=== PATIENT | male | born 1975 | race American Indian/Alaskan Native ===

== ENCOUNTER 2019-03-07 17:02 | Emergency (ER) | payer OTHER ==
[2019-03-07] MEDS ORDERED: NACL 0.9% 1000 ML 1,000 ML IV ONE (17:15)
[2019-03-07] MEDS ORDERED: ZOFRAN IV ONE (17:15)
--- NOTE | 2019-03-07 17:17 | Emergency Department Report ---
Blank Doc - Documentation Documentation: 43 Y/O MALE PRESENTS TO ED WITH SUDDEN ONSET OF ABDOMINAL PAIN NAUSEA, VOMITING, DIARRHEA. DIFFUSE MYALGIA AND LETHARGY
[2019-03-07 17:40] LABS: Basophils % (Auto) 0.3 % (0.0-1.8); Eosinophils % (Auto) 0.6 % (0.0-4.3); Hematocrit 49.4 % (35.5-45.6); Hemoglobin 16.5 gm/dl (11.8-15.2); Lymphocytes # (Auto) 0.6 K/mm3 (1.2-5.4); Lymphocytes % (Auto) 9.6 % (13.4-35.0); Mean Corpuscular HGB Conc 33 % (32-34); Mean Corpuscular Volume 84 fl (84-94); Monocytes # (Auto) 0.3 K/mm3 (0.0-0.8); Monocytes % (Auto) 5.2 % (0.0-7.3); Platelet Count 200 K/mm3 (140-440); Red Blood Count 5.87 M/mm3 (3.65-5.03); Red Cell Distribution Width 13.3 % (13.2-15.2)
[2019-03-07 18:06] LABS: Alanine Aminotransferase 21 units/L (7-56); Albumin 4.3 g/dL (3.9-5); BUN/Creatinine Ratio 8; Bilirubin,Direct 0.2 mg/dL (0-0.2); Blood Urea Nitrogen 9 mg/dL (9-20); Calcium 9.8 mg/dL (8.4-10.2); Hemolysis Index 6
[2019-03-07 19:24] LABS: Bilirubin,Urine NEG (Negative); Blood,Urine NEG (Negative); Color,Urine Yellow (Yellow); Mucus,Urine FEW /HPF; Protein,Urine <15 mg/dL mg/dL (Negative); Urobilinogen,Urine < 2.0 mg/dL (<2.0); WBC,Urine < 1.0 /HPF (0.0-6.0)
[2019-03-07] MEDS ORDERED: ZOFRAN ONE (19:42)
--- NOTE | 2019-03-07 21:21 | Emergency Department Report ---
ED N/V/D HPI - General Chief complaint: Pain General Stated complaint: ACHE PAIN ALL OVER Time Seen by Provider: 03/07/19 17:14 Source: patient Mode of arrival: Wheelchair Limitations: No Limitations - History of Present Illness Initial comments: Patient is a 43-year-old -[place] male with no past medical history who presents to the ED with complaint of acute onset of persistent intermittent nausea, diarrhea and diffuse body aches for the last 12 hours. Patient admits to eating some vegetables the day before. Patient denies fever, chills, abdominal pain, vomiting, chest pain, shortness of breath, cough, nasal and sinus congestion, change in vision, dysuria, urinary frequency and urgency over testicular pain and sore throat. MD complaint: nausea, diarrhea, other (DIFFUSE BODY ACHES) -: Sudden, hour(s) (12), This morning Description of Diarrhea: water Associated Abdominal Pain: No (Diffuse body aches) Location: diffuse Radiation: none Severity: moderate, severe Pain Scale: 6 Quality: aching Consistency: constant Improves with: none Worsens with: none Context: possible food poisoning Associated Symptoms: denies other symptoms, myalgias, diaphoresis, fever/chills, loss of appetite, malaise, nausea/vomiting. denies: chest pain, cough, headaches, shortness of breath, syncope, weakness - Related Data Previous Rx's Medication Instructions Recorded Last Taken Type Diphenoxylate/Atropine [Lomotil] 1 - 2 tab PO Q4H PRN #15 tablet 03/07/19 Unknown Rx Ibuprofen [Motrin] 800 mg PO Q8HR PRN #20 tablet 03/07/19 Unknown Rx Ondansetron [Zofran Odt] 4 mg PO Q6HR PRN #15 tab.rapdis 03/07/19 Unknown Rx Ranitidine HCl [Zantac] 150 mg PO Q12H #20 tablet 03/07/19 Unknown Rx Allergies Allergy/AdvReac Type Severity Reaction Status Date / Time No Known Allergies Allergy Unverified 03/07/19 17:14 ED Review of Systems ROS: Stated complaint: ACHE PAIN ALL OVER Other details as noted in HPI Comment: All other systems reviewed and negative Constitutional: no symptoms reported, see HPI, chills, malaise, weakness. denies: diaphoresis, fever Eyes: as per HPI. denies: eye pain, eye discharge, vision change ENT: as per HPI. denies: throat pain, dental pain, hearing loss Respiratory: no symptoms reported, see HPI. denies: cough, orthopnea, shortness of breath, SOB with exertion Cardiovascular: as per HPI. denies: chest pain, palpitations, orthopnea, edema, syncope, paroxysmal nocturnal dyspnea Endocrine: no symptoms reported, see HPI. denies: intolerance to cold, intolera nce to heat, increased thirst, increased urine Gastrointestinal: as per HPI, nausea, diarrhea. denies: abdominal pain, hematemesis, hematochezia Genitourinary: as per HPI. denies: urgency, dysuria, hematuria, discharge Musculoskeletal: as per HPI, arthralgia, myalgia Skin: as per HPI. denies: rash, lesions, change in color, pruritus Neurological: as per HPI. denies: headache, paresthesias, confusion, abnormal gait, vertigo Psychiatric: as per HPI. denies: anxiety, depression, auditory hallucinations, visual hallucinations Hematological/Lymphatic: as per HPI. denies: easy bleeding ED Past Medical Hx - Past Medical History Previous Medical History?: No - Surgical History Past Surgical History?: No - Social History Smoking Status: Current Some Day Smoker Substance Use Type: Alcohol - Medications Home Medications: Home Medications Medication Instructions Recorded Confirmed Last Taken Type Diphenoxylate/Atropine [Lomotil] 1 - 2 tab PO Q4H PRN #15 tablet 03/07/19 Unknown Rx Ibuprofen [Motrin] 800 mg PO Q8HR PRN #20 tablet 03/07/19 Unknown Rx Ondansetron [Zofran Odt] 4 mg PO Q6HR PRN #15 tab.rapdis 03/07/19 Unknown Rx Ranitidine HCl [Zantac] 150 mg PO Q12H #20 tablet 03/07/19 Unknown Rx ED Physical Exam - General Limitations: No Limitations General appearance: alert, in no apparent distress - Head Head exam: Present: atraumatic, normocephalic - Eye Eye exam: Present: normal appearance, PERRL, EOMI - ENT ENT exam: Present: normal exam, normal orophraynx, mucous membranes moist, TM's normal bilaterally, normal external ear exam - Neck Neck exam: Present: normal inspection, full ROM. Absent: tenderness, lymphadenopathy - Respiratory Respiratory exam: Present: normal lung sounds bilaterally. Absent: respiratory distress, wheezes, rhonchi, chest wall tenderness - Cardiovascular Cardiovascular Exam: Present: normal rhythm, tachycardia, normal heart sounds - GI/Abdominal GI/Abdominal exam: Present: soft, normal bowel sounds. Absent: distended, tenderness, guarding, hyperactive bowel sounds, hypoactive bowel sounds - Rectal Rectal exam: Present: deferred - Extremities Exam Extremities exam: Present: normal inspection, full ROM, normal capillary refill - Back Exam Back exam: Present: normal inspection, full ROM. Absent: tenderness, CVA tenderness (R), CVA tenderness (L), paraspinal tenderness, vertebral tenderness - Neurological Exam Neurological exam: Present: alert, oriented X3, CN II-XII intact, normal gait, reflexes normal - Psychiatric Psychiatric exam: Present: normal affect - Skin Skin exam: Present: warm, dry, intact, normal color ED Course Vital Signs 03/07/19 17:13 Temperature 99 F Pulse Rate 103 H Respiratory 18 Rate Blood Pressure 114/74 O2 Sat by Pulse 99 Oximetry - Reevaluation(s) Reevaluation #1: 03/07/19 21:21 The patient is alert and oriented 3 and is not in distress. Labs were drawn and the patient is with the Zofran oral nausea. Patient also received normal saline 1 L IV bolus 1. Lab test results were reviewed and are unremarkable. On reevaluation, patient feeling much better with no nausea. Patient has not had any diarrhea since presenting to the ED. Patient discharged home on medications and advised to follow-up with his primary care physician in 2-3 days for reevaluation. Patient is advised to return to the ED immediately if symptoms get worse. ED Medical Decision Making - Lab Data Result diagrams: 03/07/19 17:17 03/07/19 17:17 - Medical Decision Making Patient had presented to the ED with persistent nausea, diffuse body aches and diarrhea after eating some food at home. Patient was treated in the ED and Lab test results reviewed and are unremarkable. The patient's symptoms are likely viral from food poisoning. The patient is sent home on medications and advised to follow up. His primary care physician in 2-3 days for reevaluation, or return to the ED immediately if symptoms get worse. - Differential Diagnosis Viral gastroenteritis, Flu like symptoms, Nausea, diarrhea Critical care attestation.: If time is entered above; I have spent that time in minutes in the direct care of this critically ill patient, excluding procedure time. ED Disposition Clinical Impression: Viral gastroenteritis, Nausea, vomiting and diarrhea, Flu-like symptoms Disposition: TO HOME OR SELFCARE Is pt being admited?: No Does the pt Need Aspirin: No Condition: Stable Instructions: Acute Nausea and Vomiting (ED), Traveler's Diarrhea (ED), Acute Diarrhea (ED) Additional Instructions: Maintain a clear liquid diet for the next 12-24 hours and follow up with your Primary Care Physician as advised. Return to the ED immediately if symptoms get worse. Prescriptions: Diphenoxylate/Atropine [Lomotil] 1 - 2 tab PO Q4H PRN #15 tablet PRN Reason: Diarrhea Ibuprofen [Motrin] 800 mg PO Q8HR PRN #20 tablet PRN Reason: Pain , Severe (7-10) Ranitidine HCl [Zantac] 150 mg PO Q12H #20 tablet Ondansetron [Zofran Odt] 4 mg PO Q6HR PRN #15 tab.rapdis PRN Reason: Nausea Referrals: GUANAKITO YATES MD [Primary Care Provider] - 3-5 Days Time of Disposition: 21:26 Print Language: SWEDISH
[2019-03-07 22:15] VITALS: BP 126/75
== END 2019-03-07 22:14 | disposition home or self-care (01) ==
LOC: ED 17:02
DX: A08.4 Viral intestinal infection, unspecified (principal); F17.200 Nicotine dependence, unspecified, uncomplicated
CPT/HCPCS: 36415; 80048; 80076; 81001; 83690; 85025; 96361; 96374; 99283; J2405; J7030

== ENCOUNTER 2020-09-29 10:03 | Emergency (ER) | payer SELFPAY ==
[2020-09-29 10:22] VITALS: BP 123/81
--- NOTE | 2020-09-29 10:53 | Event Note ---
ED Screening Note Date of service: 09/29/20 Time: 10:49 ED Screening Note: 44-year-old -[place] male presents to the emergency room for 2-day history of back pain. Patient denies any injury. States he took a BC powder yesterday evening. States that it did help but the pain is come back. Patient denies any blood in the urine no pain with urination no penile discharge works in yard work. Patient feels it is his kidneys because it is in his lower back on both sides. This initial assessment/diagnostic orders/clinical plan/treatment(s) is/are subject to change based on patients health status, clinical progression and re- assessment by fellow clinical providers in the ED. Further treatment and workup at subsequent clinical providers discretion. Patient/guardian urged not to elope from the ED as their condition may be serious if not clinically assessed and managed. Initial orders include: ua
[2020-09-29 12:18] LABS: Bacteria,Urine 1+ /HPF (Negative); Bilirubin,Urine NEG (Negative); Blood,Urine MOD (Negative); Color,Urine Yellow (Yellow); Mucus,Urine FEW /HPF; Protein,Urine <15 mg/dL mg/dL (Negative); Urobilinogen,Urine < 2.0 mg/dL (<2.0)
[2020-09-29] MEDS ORDERED: dexAMETHasone 20 MG/5 ML VIAL IM ONE (12:51)
[2020-09-29] MEDS ORDERED: KETOROLAC 60 MG/2 ML INJ IM ONE (12:51)
--- NOTE | 2020-09-29 13:06 | Emergency Department Report ---
ED Back Pain/Injury HPI - General Chief Complaint: Back Pain/Injury Stated Complaint: BACK/KIDNEY PAIN Time Seen by Provider: 09/29/20 10:48 Source: patient Limitations: No Limitations - History of Present Illness Initial Comments: Patient is a 44-year-old male presents emergency room with complaints of bilateral lower back pain that began 2 days ago. 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 He denies any fall or injury. He denies any nausea, vomiting, diarrhea, fever, numbness, weakness, bowel or bladder incontinence, dysuria, dark urine, hematuria, chest pain, shortness of breath, abdominal pain. He denies any past medical history. No allergies to medications. - Related Data Previous Rx's Medication Instructions Recorded Last Taken Type Diphenoxylate/Atropine [Lomotil] 1 - 2 tab PO Q4H PRN #15 tablet 03/07/19 Unknown Rx Ibuprofen [Motrin] 800 mg PO Q8HR PRN #20 tablet 03/07/19 Unknown Rx Ondansetron [Zofran Odt] 4 mg PO Q6HR PRN #15 tab.rapdis 03/07/19 Unknown Rx raNITIdine HCl [Zantac] 150 mg PO Q12H #20 tablet 03/07/19 Unknown Rx Naproxen [EC-Naproxen] 500 mg PO BID PRN #14 tablet.dr 09/29/20 Unknown Rx methOCARBAMOL [Robaxin TAB] 500 mg PO BID PRN #14 tab 09/29/20 Unknown Rx Allergies Allergy/AdvReac Type Severity Reaction Status Date / Time No Known Allergies Allergy Verified 09/29/20 10:18 ED Review of Systems ROS: Stated complaint: BACK/KIDNEY PAIN Other details as noted in HPI Comment: All other systems reviewed and negative ED Past Medical Hx - Past Medical History Previous Medical History?: No - Social History Smoking Status: Current Some Day Smoker Substance Use Type: Alcohol - Medications Home Medications: Home Medications Medication Instructions Recorded Confirmed Last Taken Type Diphenoxylate/Atropine [Lomotil] 1 - 2 tab PO Q4H PRN #15 tablet 03/07/19 Unknown Rx Ibuprofen [Motrin] 800 mg PO Q8HR PRN #20 tablet 03/07/19 Unknown Rx Ondansetron [Zofran Odt] 4 mg PO Q6HR PRN #15 tab.rapdis 03/07/19 Unknown Rx raNITIdine HCl [Zantac] 150 mg PO Q12H #20 tablet 03/07/19 Unknown Rx Naproxen [EC-Naproxen] 500 mg PO BID PRN #14 tablet.dr 09/29/20 Unknown Rx methOCARBAMOL [Robaxin TAB] 500 mg PO BID PRN #14 tab 09/29/20 Unknown Rx ED Physical Exam - General Limitations: No Limitations General appearance: alert, in no apparent distress - Head Head exam: Present: atraumatic, normocephalic - Eye Eye exam: Present: normal appearance - ENT ENT exam: Present: mucous membranes moist - Neck Neck exam: Present: normal inspection, full ROM. Absent: tenderness - Respiratory Respiratory exam: Present: normal lung sounds bilaterally. Absent: respiratory distress, wheezes, rales, rhonchi, stridor, chest wall tenderness, accessory muscle use, decreased breath sounds, prolonged expiratory - Cardiovascular Cardiovascular Exam: Present: regular rate, normal rhythm, normal heart sounds. Absent: systolic murmur, diastolic murmur, rubs, gallop - Back Exam Back exam: Present: normal inspection, full ROM, paraspinal tenderness (bilateral lumbar paraspainl muscular ttp, no midline C-spine, T-spine, L-spine ttp, no step offs, no deformities). Absent: CVA tenderness (R), CVA tenderness (L), vertebral tenderness - Neurological Exam Neurological exam: Present: alert, oriented X3, CN II-XII intact, normal gait. Absent: motor sensory deficit - Psychiatric Psychiatric exam: Present: normal affect, normal mood - Skin Skin exam: Present: warm, dry, intact ED Course Vital Signs 09/29/20 09/29/20 10:21 13:01 Temperature 98.1 F Pulse Rate 61 Respiratory 20 18 Rate Blood Pressure 123/81 O2 Sat by Pulse 98 Oximetry ED Medical Decision Making - Lab Data Lab Results 09/29/20 Range/Units 11:27 Urine Color Yellow (Yellow) Urine Turbidity Clear (Clear) Urine pH 5.0 (5.0-7.0) Ur Specific [place] 1.019 (1.003-1.030) Urine Protein <15 mg/dl (Negative) mg/dL Urine Glucose (UA) Neg (Negative) mg/dL Urine Ketones Neg (Negative) mg/dL Urine Blood Mod (Negative) Urine Nitrite Neg (Negative) Urine Bilirubin Neg (Negative) Urine Urobilinogen < 2.0 (<2.0) mg/dL Ur Leukocyte Esterase Tr (Negative) Urine WBC (Auto) 3.0 (0.0-6.0) /HPF Urine RBC (Auto) 7.0 (0.0-6.0) /HPF U Epithel Cells (Auto) 1.0 (0-13.0) /HPF Urine Bacteria (Auto) 1+ (Negative) /HPF Urine Mucus Few /HPF - Medical Decision Making Patient is a 44-year-old male presents emergency room with complaints of bilateral lower back pain that began 2 days ago. 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 He denies any fall or injury. He denies any nausea, vomiting, diarrhea, fever, numbness, weakness, bowel or bladder incontinence, dysuria, dark urine, hematuria, chest pain, shortness of breath, abdominal pain. He denies any past medical history. No allergies to medications. vitals are normal. on exam: bilateral lumbar paraspainl muscular ttp, no midline C-spine, T-spine, L-spine ttp, no step offs, no deformities, no focal neuro deficits. UA is within normal limits. Examination appears most consistent with lumbar strain. Patient has no red flag warning signs of back pain, no trauma, no unexplained weight loss, no focal neuro deficits, age is not greater than 50, no fever, no IV drug use, no steroid use, no history of cancer. Patient given Toradol and dexamethasone IM while in the emergency department and symptoms completely improved and patient was feeling much better and ready to go home and was ambulating without difficulty. Patient given prescription for naproxen and Robaxin. Advised patient Please take medication as prescribed. Do not drive or operate heavy machinery while taking Robaxin muscle relaxer. May use ice pack, heating pad, rest, Epsom salt bath. Follow-up with a primary care doctor. Return to emergency room for any new or worsening symptoms. - Differential Diagnosis Muscle strain, radiculopathy, sciatica, DDD, bulging disc, spondylosis, art Critical care attestation.: If time is entered above; I have spent that time in minutes in the direct care of this critically ill patient, excluding procedure time. ED Disposition Clinical Impression: Low back pain Qualifiers: Chronicity: acute Back pain laterality: bilateral Sciatica presence: without sciatica Qualified Code(s): M54.5 - Low back pain Disposition: TO HOME OR SELFCARE Is pt being admited?: No Does the pt Need Aspirin: No Condition: Stable Instructions: Muscle Strain Additional Instructions: Please take medication as prescribed. Do not drive or operate heavy machinery while taking Robaxin muscle relaxer. May use ice pack, heating pad, rest, Epsom salt bath. Follow-up with a primary care doctor. Return to emergency room for any new or worsening symptoms. Prescriptions: Naproxen [EC-Naproxen] 500 mg PO BID PRN #14 tablet.dr PRN Reason: pain methOCARBAMOL [Robaxin TAB] 500 mg PO BID PRN #14 tab PRN Reason: pain Referrals: PRIMARY MD MIRNA [Primary Care Provider] - 2-3 Days GUANAKITO YATES MD [Staff Physician] - 2-3 Days [facility] [Provider Group] - 2-3 Days [facility], [LAB/CONTRACT] - 2-3 Days Forms: Work/School Release Form(ED) Time of Disposition: 13:05 Print Language: WOLOF
== END 2020-09-29 13:23 | disposition home or self-care (01) ==
LOC: ED 10:03
DX: M54.5 Low back pain (principal); F17.200 Nicotine dependence, unspecified, uncomplicated; Z79.899 Other long term (current) drug therapy
CPT/HCPCS: 81001; 96372; 99283; J1100; J1885

== ENCOUNTER 2021-03-30 10:10 | Emergency (ER) | payer BC ==
[2021-03-30 11:05] VITALS: BP 136/76
--- NOTE | 2021-03-30 11:19 | Emergency Department Report ---
ED Extremity Problem HPI - General Chief complaint: Extremity Injury, Lower Stated complaint: LT FOOT PAINS Time Seen by Provider: 03/30/21 10:40 Source: patient Mode of arrival: Ambulatory Limitations: No Limitations - History of Present Illness Initial comments: 45-year-old male presents to the ER today with complaints of pain to his left hip/thigh and left knee area. Patient states that the pain started about a week and a half ago but seems to be getting worse. He states that the pain radiates out into his left calf. He denies any particular injury but states that he does do a lot of walking, lifting and bending at work. He states that he does have some mild lower back pain at times but nothing significant. He denies any associated swelling, or bruising, numbness or tingling. He reports no bowel or bladder incontinence or any saddle anesthesia or lower extremity weakness. He denies any chest pain or shortness of breath. He denies similar symptoms in the past. He states that he has been taking Motrin 800 with mild relief of his symptoms. MD Complaint: extremity pain, other (Left hip/thigh/knee pain ) -: Gradual (1.5 weeks ago ) Location: left Severity scale (0 -10): 10 - Related Data Previous Rx's Medication Instructions Recorded Last Taken Type Ketorolac [Toradol] 10 mg PO Q6H PRN #20 tablet 03/30/21 Unknown Rx tiZANidine [Zanaflex 4mg TAB] 4 mg PO BID PRN #15 tablet 03/30/21 Unknown Rx Allergies Allergy/AdvReac Type Severity Reaction Status Date / Time No Known Allergies Allergy Verified 09/29/20 10:18 ED Review of Systems ROS: Stated complaint: LT FOOT PAINS Other details as noted in HPI Comment: All other systems reviewed and negative Constitutional: denies: chills, fever Eyes: denies: eye pain, eye discharge, vision change ENT: denies: ear pain, throat pain, dental pain, hearing loss, epistaxis, congestion Respiratory: denies: cough, shortness of breath, wheezing Cardiovascular: denies: chest pain, palpitations, dyspnea on exertion, edema, syncope, paroxysmal nocturnal dyspnea Gastrointestinal: denies: abdominal pain, nausea, diarrhea, constipation, hematemesis Genitourinary: denies: urgency, dysuria, frequency, hematuria, discharge, testicular pain, testicular mass Musculoskeletal: back pain, arthralgia, myalgia Skin: denies: rash, lesions, change in color, change in hair/nails, pruritus Neurological: denies: headache, weakness, numbness, paresthesias, confusion, abnormal gait Psychiatric: denies: anxiety, depression, auditory hallucinations, visual hallucinations, homicidal thoughts, suicidal thoughts Hematological/Lymphatic: denies: easy bleeding, easy bruising ED Past Medical Hx - Past Medical History Previous Medical History?: No - Social History Smoking Status: Current Some Day Smoker - Medications Home Medications: Home Medications Medication Instructions Recorded Confirmed Last Taken Type Ketorolac [Toradol] 10 mg PO Q6H PRN #20 tablet 03/30/21 Unknown Rx tiZANidine [Zanaflex 4mg TAB] 4 mg PO BID PRN #15 tablet 03/30/21 Unknown Rx ED Physical Exam - General Limitations: No Limitations General appearance: alert, in no apparent distress - Head Head exam: Present: atraumatic, normocephalic, normal inspection - Eye Eye exam: Present: normal appearance, PERRL, EOMI Pupils: Present: normal accommodation - ENT ENT exam: Present: normal exam, mucous membranes moist - Neck Neck exam: Present: normal inspection, full ROM - Respiratory Respiratory exam: Present: normal lung sounds bilaterally. Absent: respiratory distress, wheezes, rales, rhonchi - Cardiovascular Cardiovascular Exam: Present: regular rate, normal rhythm, normal heart sounds - GI/Abdominal GI/Abdominal exam: Present: soft. Absent: distended, tenderness, guarding, rebound - Expanded Lower Extremity Exam Left Hip exam: Present: normal inspection, full ROM, tenderness (mild ttp posterior lateral and medial left hip). Absent: swelling, abrasion, laceration, ecchymosis, deformity, crepidus, dislocation, erythema, external rotation, internal rotation, shortening, pelvic stability Upper Leg exam: Present: normal inspection, full ROM, tenderness (lateral, anterior and medial - mild ). Absent: swelling, abrasion, laceration, ecchymosis, deformity, crepidus, dislocation, erythema Knee exam: Present: normal inspection, full ROM, tenderness (anterior medial and lat left knee - mild ). Absent: swelling, abrasion, laceration, ecchymosis, deformity, crepidus, dislocation, erythema, effusion Lower Leg exam: Present: normal inspection, full ROM. Absent: tenderness, swelling, abrasion, laceration, ecchymosis, deformity, crepidus, dislocation, erythema, palpable cord, Annamarie's sign Foot/Toe exam: Present: normal inspection Neuro vascular tendon exam: Present: no vascular compromise. Absent: pulse deficit, motor deficit, sensory deficit Gait: Positive: observed and normal - Back Exam Back exam: Present: normal inspection, full ROM, paraspinal tenderness (mild lower lumbar area) - Neurological Exam Neurological exam: Present: alert, oriented X3, CN II-XII intact, normal gait. Absent: motor sensory deficit - Psychiatric Psychiatric exam: Present: normal affect - Skin Skin exam: Present: intact ED Course Vital Signs 03/30/21 11:04 Temperature 98.0 F Pulse Rate 74 Respiratory 18 Rate Blood Pressure 136/76 [Left] O2 Sat by Pulse 98 Oximetry ED Medical Decision Making - Radiology Data Radiology results: report reviewed Patient: CLINT HOWARD MR #: [id number] : 1975 Acct:[id number] Age/Sex: 45 / M ADM Date: 03/30/21 Loc: ED Attending Dr: Ordering Physician: ISAAC ACUÑA Date of Service: 03/30/21 Procedure(s): VL venous duplex LE LT Accession Number(s): [id number] cc: ISAAC ACUÑA DUPLEX DOPPLER LOWER EXTREMITY VEINS, LEFT INDICATION / CLINICAL INFORMATION: Left thigh pain. TECHNIQUE: Duplex doppler imaging was performed through the veins of the left lower extremity using venous compression and other maneuvers. COMPARISON: None available. FINDINGS: LEFT COMMON FEMORAL VEIN: Negative. LEFT FEMORAL VEIN: Negative. LEFT POPLITEAL VEIN: Negative. LEFT CALF VEINS: Negative. ADDITIONAL FINDINGS: None. IMPRESSION: 1. No sonographic evidence for DVT in the left lower extremity. Signer Name: Butch Mondragon MD Signed: 03/30/2021 11:51 AM Workstation Name: [id number] Transcribed By: Dictated By: BUTCH MONDRAGON Electronically Authenticated By: BUTCH MONDRAGON Signed Date/Time: 03/30/21 1151 DD/ 1150 TD/TT: - Medical Decision Making 45-year-old male presents to the ER today with complaints of pain to his left hip/thigh and left knee area. Patient states that the pain started about a week and a half ago but seems to be getting worse. He states that the pain radiates out into his left calf. He denies any particular injury but states that he does do a lot of walking, lifting and bending at work. He states that he does have some mild lower back pain at times but nothing significant. He denies any associated swelling, or bruising, numbness or tingling. He reports no bowel or bladder incontinence or any saddle anesthesia or lower extremity weakness. He denies any chest pain or shortness of breath. He denies similar symptoms in the past. He states that he has been taking Motrin 800 with mild relief of his symptoms. 1212: Venous doppler negative DVT His history/PE does not suggest cellulitis, acute arterial occlusion, compartment syndrome, septic joint or fracture at this time. Patient is not toxic, is not ill-appearing, is not in any acute pain distress. He is neurologically intact with a normal gait. His vital signs are stable. Suspect muscle strain/sprain possibly from repetitive movements at work. Discussed suspected diagnosis and treatment plan with patient. Recommend follow-up with antenna specialist in 1 week if symptoms persist. Patient stable at time of discharge. Critical care attestation.: If time is entered above; I have spent that time in minutes in the direct care of this critically ill patient, excluding procedure time. ED Disposition Clinical Impression: Left thigh pain, Left hip pain, Left knee pain, Muscle strain Disposition: DC-01 TO HOME OR SELFCARE Is pt being admited?: No Does the pt Need Aspirin: No Condition: Stable Instructions: Musculoskeletal Pain, Muscle Strain Additional Instructions: Take the toradol and the Zanaflex as prescribed. Elevate your leg as often as possible for the next few days. Follow up with [facility] if pain persist. Return to ED if symptoms worsens or changes in anyway. Prescriptions: Ketorolac [Toradol] 10 mg PO Q6H PRN #20 tablet PRN Reason: Pain tiZANidine [Zanaflex 4mg TAB] 4 mg PO BID PRN #15 tablet PRN Reason: muscle pain Referrals: VELMA MCCABE MD [Staff Physician] - 3-5 Days Forms: Work/School Release Form(ED) Time of Disposition: 12:06
--- NOTE | 2021-03-30 11:55 | Vascular Lab Report ---
DUPLEX DOPPLER LOWER EXTREMITY VEINS, LEFT INDICATION / CLINICAL INFORMATION: Left thigh pain. TECHNIQUE: Duplex doppler imaging was performed through the veins of the left lower extremity using venous compr ession and other maneuvers. COMPARISON: None available. FINDINGS: LEFT COMMON FEMORAL VEIN: Negative. LEFT FEMORAL VEIN: Negative. LEFT POPLITEAL VEIN: Negative. LEFT CALF VEINS: Negative. ADDITIONAL FINDINGS: None. IMPRESSION: 1. No sonographic evidence for DVT in the left lower extremity. Signer Name: Butch Mckenzie MD Signed: 03/30/2021 11:51 AM Workstation Name: [id number]
== END 2021-03-30 12:57 | disposition home or self-care (01) ==
LOC: ED 10:10
DX: S86.912A Strain of unspecified muscle(s) and tendon(s) at lower leg level, left leg, initial encounter (principal); S76.912A Strain of unspecified muscles, fascia and tendons at thigh level, left thigh, initial encounter; F17.200 Nicotine dependence, unspecified, uncomplicated; Z79.899 Other long term (current) drug therapy; X58.XXXA Exposure to other specified factors, initial encounter; Y93.89 Activity, other specified; Y92.89 Other specified places as the place of occurrence of the external cause; Y99.8 Other external cause status

== ENCOUNTER 2022-01-18 12:35 | Emergency (ER) | payer BC ==
[2022-01-18 13:06] VITALS: BP 149/53
--- NOTE | 2022-01-18 15:14 | XRay Report ---
Left knee 3 views INDICATION: Fall with pain FINDINGS: Alignment appears normal. No acute fracture or dislocation. Signer Name: Govind Camejo MD Signed: 01/18/2022 3:10 PM Workstation Name: [id number]
--- NOTE | 2022-01-18 15:17 | XRay Report ---
RIGHT HIP 2 VIEWS INDICATION / CLINICAL INFORMATION: Fall with right hip pain. COMPARISON: None available. FINDINGS: BONES / JOINT(S): The hip and SI joint spaces are well-maintained. There are mild degenerative change s involving the pubic symphysis. There is no evidence of acute fracture or subluxation. SOFT TISSUES: No significant abnormality. ADDITIONAL FINDINGS: None. IMPRESSION: No acute abnormality. Signer Name: Dirk Moyer MD Signed: 01/18/2022 3:13 PM Workstation Name: [id number]
[2022-01-18] MEDS ORDERED: ACETAMINOPHEN 500 MG TAB PO STA (15:37)
[2022-01-18] MEDS ORDERED: IBUPROFEN 800 MG TAB PO STA (15:37)
--- NOTE | 2022-01-18 15:37 | Emergency Department Report ---
ED General Adult HPI - General Chief complaint: Pain General Stated complaint: FELL/FT BODY HURTS Time Seen by Provider: 01/18/22 13:59 Source: patient Mode of arrival: Ambulatory Limitations: No Limitations - History of Present Illness Initial comments: 46-year-old -[place]i male patient presents with complaints of right hip pain and left knee pain after slip and fall last night. He denies any head trauma or loss of consciousness, numbness/tingling/weakness in his limbs, bruising, or known drug allergies. He rates his pain as a 6/10 in severity. He has not tried any OTC medications for symptoms. -: Sudden - Related Data Previous Rx's Medication Instructions Recorded Last Taken Type Ketorolac [Toradol] 10 mg PO Q6H PRN #20 tablet 03/30/21 Unknown Rx tiZANidine [Zanaflex 4mg TAB] 4 mg PO BID PRN #15 tablet 03/30/21 Unknown Rx Acetaminophen 1,000 mg PO TID PRN #40 cap 01/18/22 Unknown Rx Naproxen 500 mg PO BID PRN #20 tab 01/18/22 Unknown Rx methocarbamoL [Methocarbamol] 750 - 1,500 mg PO TID PRN #30 tab 01/18/22 Unknown Rx Allergies Allergy/AdvReac Type Severity Reaction Status Date / Time No Known Allergies Allergy Verified 09/29/20 10:18 ED Review of Systems ROS: Stated complaint: FELL/FT BODY HURTS Other details as noted in HPI Constitutional: denies: malaise Musculoskeletal: arthralgia. denies: joint swelling Skin: denies: change in color Neurological: abnormal gait. denies: numbness, paresthesias ED Past Medical Hx - Social History Smoking Status: Current Some Day Smoker - Medications Home Medications: Home Medications Medication Instructions Recorded Confirmed Last Taken Type Ketorolac [Toradol] 10 mg PO Q6H PRN #20 tablet 03/30/21 Unknown Rx tiZANidine [Zanaflex 4mg TAB] 4 mg PO BID PRN #15 tablet 03/30/21 Unknown Rx Acetaminophen 1,000 mg PO TID PRN #40 cap 01/18/22 Unknown Rx Naproxen 500 mg PO BID PRN #20 tab 01/18/22 Unknown Rx methocarbamoL [Methocarbamol] 750 - 1,500 mg PO TID PRN #30 tab 01/18/22 Unknow n Rx ED Physical Exam - General Limitations: No Limitations General appearance: alert, in no apparent distress, obese - Head Head exam: Present: atraumatic, normocephalic - Eye Eye exam: Present: normal appearance - Respiratory Respiratory exam: Absent: respiratory distress - Cardiovascular Cardiovascular Exam: Present: regular rate - Extremities Exam Extremities exam: Present: full ROM, other (Mild tenderness to palpation noted to the left tibial notch; no swelling or skin changes noted; full range of mot ion of the knee is noted; hip exam is normal bilateral). Absent: joint swelling - Back Exam Back exam: Absent: paraspinal tenderness, vertebral tenderness - Expanded Back Exam Expanded Back exam: Absent: saddle anesthesia - Neurological Exam Neurological exam: Present: alert, oriented X3 - Psychiatric Psychiatric exam: Present: normal affect, normal mood - Skin Skin exam: Present: warm, dry, intact, normal color. Absent: rash ED Course Vital Signs 01/18/22 13:02 Temperature 97.9 F Pulse Rate 86 Respiratory 16 Rate Blood Pressure 149/53 [Left] O2 Sat by Pulse 96 Oximetry ED Medical Decision Making - Radiology Data Radiology results: report reviewed Fluoro Time In Minutes: Left knee 3 views INDICATION: Fall with pain FINDINGS: Alignment appears normal. No acute fracture or dislocation. Signer Name: Govind Camejo MD RIGHT HIP 2 VIEWS INDICATION / CLINICAL INFORMATION: Fall with right hip pain. COMPARISON: None available. FINDINGS: BONES / JOINT(S): The hip and SI joint spaces are well-maintained. There are mild degenerative changes involving the pubic symphysis. There is no evidence of acute fracture or subluxation. SOFT TISSUES: No significant abnormality. ADDITIONAL FINDINGS: None. IMPRESSION: No acute abnormality. - Medical Decision Making 46-year-old -[place] male patient presents with complaints of right hip pain and left knee pain after slip and fall last night. He denies any head trauma or loss of consciousness, numbness/tingling/weakness in his limbs, bruising, or known drug allergies. He rates his pain as a 6/10 in severity. He has not tried any OTC medications for symptoms. No acute abnormalities noted on x-ray. Will treat for sprain of the hip and knee with NSAIDs, icing, and stretching. Recommend follow-up with PCP. Strict return precautions discussed in detail with patient who verbalized understanding Critical care attestation.: If time is entered above; I have spent that time in minutes in the direct care of this critically ill patient, excluding procedure time. ED Disposition Clinical Impression: Hip pain, right, Left knee pain Disposition: HOME / SELF CARE / HOMELESS Is pt being admited?: No Condition: Stable Instructions: Hip Sprain, Knee Sprain, Adult, [id number] Prescriptions: Acetaminophen 1,000 mg PO TID PRN #40 cap PRN Reason: pain methocarbamoL [Methocarbamol] 750 - 1,500 mg PO TID PRN #30 tab PRN Reason: muscle spasm/tightness Naproxen 500 mg PO BID PRN #20 tab PRN Reason: pain Referrals: PRIMARY CARE,MD [Primary Care Provider] - 3-5 Days [facility] [Provider Group] - as needed Forms: Work/School Release Form(ED)
== END 2022-01-18 17:34 | disposition home or self-care (01) ==
LOC: ED 12:35
DX: M25.551 Pain in right hip (principal); M25.562 Pain in left knee; F17.200 Nicotine dependence, unspecified, uncomplicated; Z79.899 Other long term (current) drug therapy
CPT/HCPCS: 99283